=== PATIENT | female | born 1995 | race African-American/Black ===

== ENCOUNTER 2020-07-23 22:55 | Inpatient (IN) | payer OTHER ==
--- OUTSIDE RECORDS SUMMARY | 2020-07-23 23:13 | XMS ---
:1995 Author Organization [facility] Care Team Providers Name Role Phone EMERGENCY SERVICE, X Unavailable Unavailable COCUZZA, CRIS Unavailable Unavailable José Luis Carlito Unavailable Unavailable Re-disclosure Warning The records that you are about to access may contain information from federally- assisted alcohol or drug abuse programs. If such information is present, then the following federally mandated warning applies: This information has been disclosed to you from records protected by federal confidentiality rules (42 CFR part 2). The federal rules prohibit you from making any further disclosure of this information unless further disclosure is expressly permitted by the written consent of the person to whom it pertains or as otherwise permitted by 42 CFR part 2. A general authorization for the release of medical or other information is NOT sufficient for this purpose. The Federal rules restrict any use of the information to criminally investigate or prosecute any alcohol or drug abuse patient.The records that you are about to access may contain highly sensitive health information, the redisclosure of which is protected by Article 27-F of the [facility] Public Health law. If you continue you may haveaccess to information: Regarding HIV / AIDS; Provided by facilities licensed or operated by the [facility] Office of Mental Health; or Provided by the [facility] Office for People With Developmental Disabilities. If such information is present, then the following [facility] mandated warning applies: This information has been disclosed to you from confidential records which are protected by state law. State law prohibits you from making any further disclosure of this information without the specific written consent of the person to whom it pertains, or as otherwise permitted by law. Any unauthorized further disclosure in violation of state law may result in a fine or shelter sentence or both. A general authorization for the release of medical or other information is NOT sufficient authorization for further disclosure. Encounters Encounter Providers Location Date Indications Data Source(s ) Emergency Attender: ANTHONY, 05/04/2020 THUMB L[facility]ER[facility] TINAAttender: 09:07:00 PM Health Car e EMERGENCY SERVICE, EDT Corpor ation XAdmitter: Alena CRUZradhar: EMERGENCY SERVICE, X THUMB LACERATION Emergency Attender: Carlito ICU-EMERG 11/12/2018 POSS FOOD [facility] [place] 10:22:00 AM EST - POISON, REF BY Brendon abbasi 11/12/2018 DR Kulkarni 02:32:00 PM EST POSS FOOD POISON, REF BY Immunizations Vaccine Date Status Description Data Source(s) Tdap 03/08/2014 completed Tdap on: 08-Mar-2014 Site: Ent mariela left upper arm (body structure) [facility] 12:00:00 AM EDT [id number] Medications Medication Brand Start Product Dose Route [facility] Indications Reaction Description Data Name Date Form Instructions Instructions Source(s) Lidocaine Lidoca 05/04/ 0 MG UNK active Lidocain e [place] 2% w/Epi 1 ine 2% 2019 2% w/Epi r [facility] w/Epi 09:09: 1:100,000 Health 1 04 PM (Peds); Give Care EDT to provider Corporat io to admin n Medication administered onsite Docusate Colace 10/31/2016 CAPSULE 1 {cap(s)} ORAL completed [facility] Sodium 100 100 mg 12:38:51 PM Health MG Oral oral EST System Capsule capsule [Colace] Colace 100 mg oral capsule Medication should be taken with plenty o f water. ferrous ferrous 10/31/2016 TABLET 1 {tab(s)} ORAL completed [facility] sulfate 325 sulfate 325 12:38:13 PM Health MG Oral mg (65 mg EST System Tablet elemental ferrous iron) oral sulfate 325 tablet mg (65 mg elemental iron) oral tablet Check with your doctor before becoming p regnant.Do not chew, break, or crush.May discolor urine or feces. Ibuprofen IBU 600 10/31/2016 TABLET 1 {tab(s)} ORAL completed [facility] 600 MG Oral mg oral 12:37:16 PM Health Tablet tablet EST System [Ibu] IBU 600 mg oral tablet Do not take this drug if you are pregnan t.It is very important that you take or use this exactly as directed. Do not skip d oses or discontinue unless directed by your doctor.May cause drowsiness or dizziness .Obtain medical advice before taking any non-prescription drugs as some may affec t the action of this medication.Take with food or milk. Ibuprofen IBU 600 10/29/2016 TABLET 1 {tab(s)} ORAL completed [facility] 600 MG Oral mg oral 01:35:49 AM Health Tablet tablet EST System [Ibu] IBU 600 mg oral tablet Do not take this drug if you are pregnan t.It is very important that you take or use this exactly as directed. Do not skip d oses or discontinue unless directed by your doctor.May cause drowsiness or dizziness .Obtain medical advice before taking any non-prescription drugs as some may affec t the action of this medication.Take with food or milk. 999 MG oral completed [facility] Insurance Providers Payer name Policy type Policy ID Covered Covered democrat's Policy P stephan / Coverage democrat ID relationship to [place] [facility] ormation type [facility] MEDICAID [id number] SP [id number] [facility] [id number] SP [id number] CARE UNK UNK UNK Medicaid Medicaid [id number] [place] Vision [id number] S [id number] Dental [id number] S [id number] 100 Dentaquest [facility] FFS [id number] S [id number] Medicaid Vic Care [id number] S [id number] [place] Medicaid Medicaid [id number] S [id number] Regular Clinic Visit Problems, Conditions, and Diagnoses Code Display Name Description Problem Type Effective Data Sour ce(s) Dates Z3A.25 25 weeks gestation 25 WEEKS GESTATION Diagnosis 0 [place] of OF 09:07:00 PM [facility] Heart Metabolics Y99.8 Other external OTHER EXTERNAL Diagnosis 05/04/2020 [facility] cause status CAUSE STATUS 09:07:00 PM [facility] Heart Metabolics Y92.89 Other specified OTH PLACES THE Diagnosis 05/04/2020 [facility] OF OCCURRENCE 09:07:0 0 [facility] of occurrence of OF THE EXTERNAL EDT Car e the external cause CAUSE Corpor ation W26.8XXA Contact with other CONTACT WITH OTHER Diagnosis 0 [place] sharp object(s), SHARP OBJECT(S), 09:07:00 PM [facility] not elsewhere NEC, INITIAL EDT Care classified, initial ENCOUNTER Corpo ration encounter S61.012A Laceration without LACERATION W/O FB Diagnosis 05/04/2020 [place] foreign body of OF LEFT THUMB W/O 09:07:00 PM [facility] left thumb without DAMAGE TO NAIL, EDT C are damage to nail, INIT Corporati on initial encounter O9A.212 Injury, poisoning INJ/POISN/OTH Diagnosis 05/04/2020 [place] and certain other CONSEQ OF EXTRN 09:07:00 PM [facility] consequences of CAUSES COMP PREG, EDT Ca re external causes SECOND TRI Corporati on complicating , second trimester 732.3 JUVENILE Juv Osteochondrosis Diagnosis 01/08/2019 CHELSEA TREVINO ([place] OF Arm 10:03:56 AM [place] UPPER EXTREMITY EST [facility]) POSS FOOD POISON, POSS FOOD POISON, Diagnosis 11/12/2018 [facility] - New REF BY REF BY 10:22:00 AM [facility] K52.89 Other specified Other noninfectious Diagnosis 11/12/2018 [facility] - New noninfective gastroenteritis and 10:22:00 AM Ro moncho gastroenteritis and colitis EST Hospi salazar colitis Surgeries/Procedures Procedure Description Date Indications Data Source(s) Urine Test 11/12/2018 [facility] POCT 01:00:46 PM EST System - 11/12/2018 01:00:46 PM EST Aerobic Culture, Urine 11/12/2018 [facility] 12:54:48 PM EST System - 11/12/2018 12:54:48 PM EST US Obstetric limited 05/02/2016 [facility] 10:35:00 AM EDT System - 05/02/2016 10:35:00 AM EDT Urinalysis + 03/07/2014 [facility] Microscopic Examination 09:00:00 AM EDT S ystem - 03/07/2014 09:00:00 AM EDT US OB 1st Trimester 09/10/2013 [facility] (less than 14 weeks) 10:50:00 AM EST Syst em each add - 09/10/2013 10:50:00 AM EST US Obstetric limited 09/10/2013 [facility] 10:50:00 AM EST System - 09/10/2013 10:50:00 AM EST Results ID Date Data Source [id number] 07/19/2020 09:32:00 AM EDT [facility] Name Value Range Interpretation Description Data Sup porting Code Source(s) Document(s ) SARS [facility] coronavirus 2 RNA This lab was ordered by [facility] and reported by [facility]. ID Date Data Source [id number] 11/12/2018 11:09:00 AM EST [facility] Name Value Range Interpretation Description Data Sup porting Code Source(s) Document(s ) Influenza virus Negative Normal (applies Flu A Viral [facility] A RNA [Presence] to non-numeric RNA Health in Unspecified results) System specimen by Probe and target amplification method Influenza virus Negative Normal (applies Flu B Viral [facility] B RNA [Presence] to non-numeric RNA Health in Unspecified results) System specimen by Probe and target amplification method ID Date Data Source [id number] 11/12/2018 11:04:00 AM EST [facility] Name Value Range Interpretation Description Data Sup porting Code Source(s) Document(s ) Color Yellow Yellow Normal (applies Color [facility] to non-numeric Health results) System Appearance of HAZY Clear Normal (applies Urine [facility] Urine to non-numeric Appearance Health results) System Specific 1.030 1.001 - Normal (applies Urine Specific [facility] gravity of 1.035 to non-numeric [facility] Urine results) System pH.. 5.0 4.6 - 8.0 Normal (applies pH.. [facility] {pH_unit pH units to non-numeric Health s} results) System Glucose, UA NEG < 50 mg/dl Normal (applies Glucose, UA [facility] to non-numeric Health results) System Protein NEG < 30 mg/dl Normal (applies Protein [facility] [Mass/volume] to non-numeric Health in Serum or results) System Plasma Bilirubin NEG Negative Normal (applies Bilirubin [facility] Urine Sm to Lg to non-numeric Urine Health results) System Urobilinogen < 2.0 Normal (applies Urobilinogen [facility] [Mass/volume] to non-numeric UA Health in Urine results) System Reference Range: Negative or <=2.0 Ketones NEG <TR mg/dL Normal (applies Ketones UA [facility] [Mass/volume] in to non-numeric Health S ystem Urine results) Nitrate+Nitrite Negative Negative Normal (applies Nitrite [facility] [Mass/volume] in Neg/Pos to non-numeric Health S ystem Unspecified results) specimen Leukocyte NEG Negative Tr Normal (applies Leukocyte [facility] esterase to Lg to non-numeric Esterase Health System [Units/volume] in results) Concentration Urine Leukocytes 11 {/HPF} 0 - 2 /HPF Normal (applies White Blood [facility] [#/volume] in to non-numeric Cells Health Syst em Unspecified results) specimen by Automated count Red Blood Cells 1 {/HPF} 0 - 1 /HPF Normal (applies Red Blood Cells [facility] to non-numeric Health System results) Epithelial cells 11 {/HPF} 0 - 3 /HPF Normal (applies Epithelial Teresa ls [facility] [Presence] in to non-numeric Health Syst em Unspecified results) specimen by Wet preparation Mucus OCC 0 - 1 /LPF Normal (applies Mucus [facility] to non-numeric Health System results) Bacteria FEW 0 - 5 /HPF Normal (applies Bacteria [facility] [Presence] in to non-numeric Health Syst em Unspecified results) specimen Urine Blood NEG Negative Sm Normal (applies Urine Blood [facility] to Lg to non-numeric Health System results) ID Date Data Source [id number] 11/12/2018 11:04:00 AM EST [facility] System Name Value Range Interpretation Description Data Sup porting Code Source(s) Document(s ) Leukocytes 6.4 4.8 - Normal (applies WBC Count [facility] [#/volume] in {10^3_u 10.8 to non-numeric Health Unspecified L} 10^3 uL results) System specimen by Automated count Erythrocytes 4.81 4.20 - Normal (applies RBC Count [facility] [#/volume] in {10^6_u 5.40 to non-numeric Health Blood by L} 10^6 uL results) System Automated count Hemoglobin 14.3 12.0 - Normal (applies Hemoglobin [facility] [Mass/volume] in {gm/dL} 16.0 to non-numeric Health Blood gm/dL results) System Hematocrit 42.8 % 37.0 - Normal (applies Hematocrit [facility] [Volume 47.0 % to non-numeric Health Fraction] of results) System Blood Erythrocyte mean 89.0 fl 81.0 - Normal (applies MCV [facility] corpuscular 99.0 fl to non-numeric Health volume [Entitic results) System volume] by Automated count Erythrocyte mean 29.7 pg 27.0 - Normal (applies MCH [facility] corpuscular 31.0 pg to non-numeric Health hemoglobin results) System [Entitic mass] by Automated count Erythrocyte mean 33.4 30.0 - Normal (applies MCHC [facility] corpuscular {gm/dL} 35.0 to non-numeric Health hemoglobin gm/dL results) System concentration [Mass/volume] by Automated count Erythrocyte 11.9 % 11.5 - Normal (applies RDW-CV [facility] distribution 14.5 % to non-numeric Health width [Entitic results) System volume] by Automated count Platelets 303 130 - Normal (applies Platelet Count [facility] [#/volume] in {10^3_u 400 to non-numeric Health Plasma by L} 10^3 uL results) System Automated count Immature 1.50 % 0.90 - Normal (applies Immature [facility] Platelet 11.20 % to non-numeric Platelet Health Fraction results) Fraction System Platelet mean 9.1 fl 8.6 - Normal (applies MPV [facility] volume [Entitic 13.5 fl to non-numeric Health volume] in Blood results) System by Automated count Nucleated 0.0 0.0 - Normal (applies NRBC % [facility] erythrocytes {/100_W 0.2 to non-numeric Health [#/volume] in BC} /100 results) System Body fluid WBC NRBC # 0.00 0.00 - Normal (applies NRBC # [facility] {10^3_u 0.01 to non-numeric Health L} 10^3 uL results) System Neutrophils/100 79.3 % 55.0 - Above high Neutrophil % [facility] leukocytes in 75.0 % normal Health Blood by System Automated count Neutrophils 5.1 Normal (applies Neutrophil # [facility] [#/volume] in {10^3_u to non-numeric Health Body fluid L} results) System Lymphocytes 14.4 % 15.0 - Below low normal Lymphocyte % [facility] [#/volume] in 41.0 % Health Blood by System Automated count Lymphocyte # 0.9 1.0 - Below low normal Lymphocyte # [facility] {10^3_u 4.8 Health L} 10^3 uL System Monocytes/100 5.5 % 2.0 - Normal (applies Monocyte % [facility] leukocytes in 9.0 % to non-numeric Health Blood results) System Monocytes 0.4 Normal (applies Monocyte # [facility] [#/volume] in {10^3_u to non-numeric Health Blood by Manual L} results) System count Eosinophils/100 0.2 % 0.0 - Normal (applies Eosinophil % Nithin elif leukocytes in 5.0 % to non-numeric Health Unspecified results) System specimen Eosinophils 0.01 0.00 - Normal (applies Eosinophil # [facility] [#/volume] in {10^3_u 0.50 to non-numeric Health Blood L} 10^3 uL results) System Basophils/100 0.3 % 0.0 - Normal (applies Basophil % [facility] leukocytes in 1.0 % to non-numeric Health Unspecified results) System specimen by Manual count Basophils 0.02 0.00 - Normal (applies Basophil # [facility] [#/volume] in {10^3_u 0.10 to non-numeric Health Blood by L} 10^3 uL results) System Automated count Immature 0.02 0.00 - Normal (applies Immature [facility] Granulocytes # {10^3_u 0.09 to non-numeric Granulocytes # Healt h L} 10^3 uL results) System Immature 0.3 % 0.0 - Normal (applies Immature [facility] Granulocytes % 0.8 % to non-numeric Granulocytes % Healt h results) System ID Date Data Source [id number] 11/12/2018 11:04:00 AM EST [facility] Name Value Range Interpretation Description Data Sup porting Code Source(s) Document(s ) hCG 0.00 <5 Normal (applies hCG [facility] Quantitative {mIU/mL} mIU/mL to non-numeric Quantitative Health results) System Negative = <5 mIU/mLAPPROXIMATE GEST. AG E APPROXIMATE HCG mIU/ML 0.2 - 1 week 5 - 50 1 - 2 w eeks 50 - 500 2 - 3 weeks 100 - 5,000 3 - 4 weeks 500 - 10,000 4 - 5 weeks 1,000 - 50,000 5 - 6 weeks 10,000 - 100,000 6 - 8 weeks 15,000 - 200,000 8 - 12 weeks 10,000 - 1 00,000HCG levels between 5-25 mIU/mL may be indicative of early . Correlati on with other clinical findings and/or repeat of HCG quantitative testing recommened. ID Date Data Source [id number] 11/12/2018 11:04:00 AM DINO [facility] Guru villalba System Name Value Range Interpretation Description Data Sup porting Code Source(s) Document(s ) Sodium 138 135 - Normal (applies Sodium, Serum [facility] [Moles/volume] in mmol/L 145 to non-numeric Health Serum or Plasma mmol/L results) System Potassium 3.8 3.5 - Normal (applies Potassium, [facility] [Mass/volume] in mmol/L 5.0 to non-numeric Serum Health Serum or Plasma mmol/L results) System Chloride 106 101 - Normal (applies Chloride, [facility] [Moles/volume] in mmol/L 111 to non-numeric Serum Health Serum or Plasma mmol/L results) System Carbon dioxide, 27.9 21.0 - Normal (applies CO2, Serum [facility] total mmol/L 31.0 to non-numeric Health [Moles/volume] in mmol/L results) System Serum or Plasma Total Protein 7.2 6.4 - Normal (applies Total Protein [facility] mg/dl 8.1 to non-numeric Health mg/dl results) System Glucose 99 65 - Normal (applies Glucose, [facility] [Mass/volume] in mg/dL 110 to non-numeric Serum Health Serum or Plasma mg/dL results) System Urea nitrogen 14 7 - 18 Normal (applies Blood Urea [facility] [Mass/volume] in mg/dl mg/dl to non-numeric Nitrogen, Health Serum or Plasma results) Serum System Creatinine 0.72 0.50 - Normal (applies Creatinine, [facility] [Mass/volume] in mg/dl 1.20 to non-numeric Serum Health Serum or Plasma mg/dl results) System Alkaline 55 42 - Normal (applies Alkaline [facility] phosphatase {IU/L} 121 to non-numeric Phosphatase, Health isoenzymes IU/L results) Serum System [Enzymatic activity/volume] in Serum or Plasma by Heat stability Bilirubin direct 0.6 0.2 - Normal (applies Bilirubin, [facility] and total panel mg/dl 1.2 to non-numeric Serum Total Health [Mass/volume] - mg/dl results) System Serum or Plasma Direct Bilirubin 0.2 0.0 - Normal (applies Direct [facility] mg/dl 0.4 to non-numeric Bilirubin Health mg/dl results) System Aspartate 16 10 - 42 Normal (applies Aspartate [facility] aminotransferase {IU/L} IU/L to non-numeric Transaminase, Heal th [Enzymatic results) Serum System activity/volume] in Serum or Plasma by With P-5'-P Albumin 4.1 3.2 - Normal (applies Albumin, [facility] [Mass/volume] in {gm/dl} 5.5 to non-numeric Serum Health Serum or Plasma gm/dl results) System I. Phosphorus 3.1 2.6 - Normal (applies I. Phosphorus [facility] mg/dl 4.9 to non-numeric Health mg/dl results) System Alanine 9 10 - 42 Below low normal Alanine [facility] aminotransferase {IU/L} IU/L Aminotransfer Health [Enzymatic ase, Serum System activity/volume] in Serum or Plasma Calcium 9.2 8.4 - Normal (applies Calcium, [facility] [Mass/volume] in mg/dl 10.2 to non-numeric Total Serum Health Serum or Plasma mg/dl results) System A/G Ratio 1.32 Normal (applies A/G Ratio [facility] to non-numeric Health results) System Urate 4.5 2.3 - Normal (applies Uric Acid, [facility] [Mass/volume] in mg/dl 7.5 to non-numeric Serum Health Serum or Plasma mg/dl results) System Anion gap in Serum 4.10 Normal (applies Anion Gap Nithin leif or Plasma mmol/L to non-numeric Health results) System Glomerular > 90 Normal (applies GFR [facility] filtration to non-numeric Health rate/1.73 sq results) System M.predicted [Volume Rate/Area] in Serum or Plasma by Creatinine-based formula (CKD-EPI) eGFR will provide clinicians with a more accurate indicator of renal function then the serum creatinine. The eGFR is automa tically calculated from an empiric formula (endorsed by the National [employer] ion) which incorporates age, sex, and race.Clinicians may notice surprisingly low GFR's with serum creatinine valueswithin normal range- particularly in elderly wo men (with low muscle mass).In the hospital setting, the eGFR should add an element of safety in drug dosing, in assessing the risk of IV contrast administration, and in assessing vascular risk.The NKF staging system is as follows:Normal: eGFR >90 with no kidney markersStage 1: eGFR >90 with kidney markers*Stage 2: eGFR 60- 89Stage 3: eGFR 30-59Stage 4: eGFR 15-29Stage 5: eGFR <15 (usually requir ing dialysis)*Markers include: Proteinuria, Hematuria, abnormal imaging-studies, or other blood or urine test abnormalities ID Date Data Source [id number] 11/12/2018 11:04:00 AM DINO [facility] System Name Value Range Interpretation Description Data Source(s ) Supporting Code Document(s ) Lipase 5 U/L 4 - 66 Normal (applies to Lipase, Serum [facility] [Enzymatic U/L non-numeric Health System activity/v results) olume] in Serum or Plasma ID Date Data Source [id number] 11/01/2016 07:47:55 AM DINO Scotty [facility] System Name Value Range Interpretation Description Data Sup porting Code Source(s) Document(s ) Tissue Results for case # Normal (applies Tissue Exam [facility] Exam [id number] to non-numeric Health SURGICAL PATHOLOGY results) System REPORTCLINICAL INFORMATION: IUP at 38 weeks, 5 days. .PREOPERATIVE DIAGNOSIS: Same. 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 and focal increase in perivillous fibrin deposition.Stem vessels with focally thickened wall and narrowed lumen.Vascular congestion.Focal decidual atherosis.Membrano us decidua with focal acute deciduitis and fibrinoid necrosis.Degenerat ion of amnionic membrane with few scattered macrophages.Trivas cular umbilical cord with vascular and perivascular congestion.No inflammation is seen.RPS/stRERANDALLO Catarina SKY MDElectronically Signed By: GROSS DESCRIPTION: Received fresh, labeled "placenta", the specimen consists of a 440gram, 17.5 x 15 x 3cm placenta that has attached peripheral lozada translucent membranes. The site of membrane rupture is indeterminate. The 3 vessel 12 x 1.5cm umbilical cord inserts eccentrically, 6cm from the edge of the placental disc. The surface is blue kearney and the amnion has been previously stripped. There are multiple areas of subchorionic fibrin deposition measuring up to 7.5 x 5cm. The maternal surface is red brown and intact. Sectioning demonstrates multiple lozada to lozada red, rubbery, wedge shaped areas measuring up to 2cm in greatest dimension occupying 4% of the cut surfaces. A few of the rubbery areas are located adjacent to the surface. A smaller rubbery area is continuous with the maternal surface. The remaining cut surfaces are red, soft and spongy. Also received is a 16 x 1cm 2 segment of umbilical cord. An additional segment of cord is received within the container measuring 4.5 x 1cm. Full Stack Developer sections are submitted as follows: #1- membranes and umbilical cord; #2-3- one full thickness section of placenta with rubbery area, cassette #2 includes surface, #3 includes maternal surface; #4- one full thickness section of placenta including additional rubbery area; #5- one full thickness section of placenta including additional rubbery area; #6- maternal surface including additional rubbery area; #7- placenta, periphery. Additional sections of amnion in cassette #8. /stPage 2 of 2 ID Date Data Source [id number] 10/30/2016 05:57:00 AM EST [facility] System Perform at 6am Name Value Range Interpretation Description Data Sup porting Code Source(s) Document(s ) Leukocytes 12.2 4.8 - Above high WBC Count [facility] [#/volume] in {10^3_u 10.8 normal Health Unspecified L} 10^3 uL System specimen by Automated count Erythrocytes 3.16 4.20 - Below low normal RBC Count [facility] [#/volume] in {10^6_u 5.40 Health Blood by L} 10^6 uL System Automated count Hemoglobin 9.4 12.0 - Below low normal Hemoglobin [facility] [Mass/volume] in {gm/dL} 16.0 Health Blood gm/dL System Hematocrit 28.2 % 37.0 - Below low normal Hematocrit [facility] [Volume 47.0 % Health Fraction] of System Blood Erythrocyte mean 89.2 fl 81.0 - Normal (applies MCV [facility] corpuscular 99.0 fl to non-numeric Health volume [Entitic results) System volume] by Automated count Erythrocyte mean 29.7 pg 27.0 - Normal (applies MCH [facility] corpuscular 31.0 pg to non-numeric Health hemoglobin results) System [Entitic mass] by Automated count Erythrocyte mean 33.3 30.0 - Normal (applies MCHC [facility] corpuscular {gm/dL} 35.0 to non-numeric Health hemoglobin gm/dL results) System concentration [Mass/volume] by Automated count Erythrocyte 12.3 % 11.5 - Normal (applies RDW-CV [facility] distribution 14.5 % to non-numeric Health width [Entitic results) System volume] by Automated count Platelets 190 130 - Normal (applies Platelet Count [facility] [#/volume] in {10^3_u 400 to non-numeric Health Plasma by L} 10^3 uL results) System Automated count Platelet mean 10.6 fl 8.6 - Normal (applies MPV [facility] volume [Entitic 13.5 fl to non-numeric Health volume] in Blood results) System by Automated count Nucleated 0.0 0.0 - Normal (applies NRBC % [facility] erythrocytes {/100_W 0.2 to non-numeric Health [#/volume] in BC} /100 results) System Body fluid WBC NRBC # 0.00 0.00 - Normal (applies NRBC # [facility] {10^3_u 0.01 to non-numeric Health L} 10^3 uL results) System Neutrophils/100 63.6 % 55.0 - Normal (applies Neutrophil % Nithin elif leukocytes in 75.0 % to non-numeric Health Blood by results) System Automated count Neutrophils 7.8 Normal (applies Neutrophil # [facility] [#/volume] in {10^3_u to non-numeric Health Body fluid L} results) System Lymphocytes 23.8 % 15.0 - Normal (applies Lymphocyte % [facility] [#/volume] in 41.0 % to non-numeric Health Blood by results) System Automated count Lymphocyte # 2.9 1.0 - Normal (applies Lymphocyte # [facility] {10^3_u 4.8 to non-numeric Health L} 10^3 uL results) System Monocytes/100 8.7 % 2.0 - Normal (applies Monocyte % [facility] leukocytes in 9.0 % to non-numeric Health Blood results) System Monocytes 1.1 Normal (applies Monocyte # [facility] [#/volume] in {10^3_u to non-numeric Health Blood by Manual L} results) System count Eosinophils/100 2.5 % 0.0 - Normal (applies Eosinophil % Nithin elif leukocytes in 5.0 % to non-numeric Health Unspecified results) System specimen Basophils/100 0.4 % 0.0 - Normal (applies Basophil % [facility] leukocytes in 1.0 % to non-numeric Health Unspecified results) System specimen by Manual count Eosinophils 0.31 0.00 - Normal (applies Eosinophil # [facility] [#/volume] in {10^3_u 0.50 to non-numeric Health Blood L} 10^3 uL results) System Basophils 0.05 0.00 - Normal (applies Basophil # [facility] [#/volume] in {10^3_u 0.10 to non-numeric Health Blood by L} 10^3 uL results) System Automated count Immature 0.12 0.00 - Above high Immature [facility] Granulocytes # {10^3_u 0.09 normal Granulocytes # Health L} 10^3 uL System Immature 1.0 % 0.0 - Above high Immature [facility] Granulocytes % 0.8 % normal Granulocytes % Health System ID Date Data Source [id number] 10/29/2016 05:35:00 AM EST [facility] Name Value Range Interpretation Description Data Sup porting Code Source(s) Document(s ) pH 7.488 7.350 - Above high normal pH [facility] {pH_unit 7.450 pH Health s} units System Carbon dioxide 27.7 32.0 - Below low normal pCO2, [facility] [Partial {mm_Hg} 45.0 mm Arterial Health pressure] in Hg System Arterial blood Base Excess. -2.2 -3 - +3 Below low normal Base Excess. [facility] mmol/L mmol/L Health System Bicarbonate 20.8 20.0 - Normal (applies HCO3 [facility] [Moles/volume] mmol/L 26.0 to non-numeric Health in Venous mmol/L results) System blood ID Date Data Source [id number] 10/29/2016 05:35:00 AM EST [facility] System Name Value Range Interpretation Description Data Sup porting Code Source(s) Document(s ) pH 7.385 7.350 - Normal (applies pH [facility] {pH_unit 7.450 pH to non-numeric Health s} units results) System Carbon dioxide 37.9 32.0 - Normal (applies pCO2, [facility] [Partial {mm_Hg} 45.0 mm to non-numeric Arterial Health pressure] in Hg results) System Arterial blood Bicarbonate 22.2 20.0 - Normal (applies HCO3 [facility] [Moles/volume] mmol/L 26.0 to non-numeric Health in Venous mmol/L results) System blood Base Excess. -2.1 -3 - +3 Below low normal Base Excess. [facility] mmol/L mmol/L Health System ID Date Data Source [id number] 10/29/2016 02:13:00 AM [facility] System Name Value Range Interpretation Description Data Sup porting Code Source(s) Document(s ) HIV test, Negative Normal (applies to HIV test, [facility] RAPID non-numeric RAPID Health System (antibody results) (antibody testing testing only) only) PLEASE NOTE:If rapid HIV test is negativ e, this is a final report.If rapid HIV test is positive: THIS IS A PRELIMINARY REPO RT - CONFIRMATION IS PENDING.Confirmed results must be considered in making a d iagnosis related to HIV infection. ID Date Data Source [id number] 10/29/2016 01:54:00 AM EST [facility] System Name Value Range Interpretation Description Data Sup porting Code Source(s) Document(s ) D Ab [Titer] Positive Normal (applies Rh [facility] in Serum or to non-numeric Health System Plasma results) Type O Normal (applies Type [facility] to non-numeric Health System results) Antibody Negative Normal (applies Antibody [facility] Screen to non-numeric Screen Health System results) ID Date Data Source [id number] 10/29/2016 01:54:00 AM EST [facility] Name Value Range Interpretation Description Data Sup porting Code Source(s) Document(s ) aPTT in Blood 28.3 25.1 - Normal (applies Activated [facility] by {Second 36.5 to non-numeric Partial Health Coagulation s} Seconds results) Thromboplastin System assay Time ID Date Data Source [id number] 10/29/2016 01:54:00 AM [facility] System Name Value Range Interpretation Description Data Sup porting Code Source(s) Document(s ) Prothrombin 10.10 10.00 - Normal (applies Prothrombin [facility] time (PT) {seconds 13.60 to non-numeric time (PT) Health } seconds results) System INR in Blood 0.90 0.70 - Normal (applies INR Result [facility] by Coagulation {Ratio} 1.10 to non-numeric Health assay Ratio results) System Normal = 0.7-1.1Therapeutic = 2.0-3.0Mec hanical Heart = 3.0-4.5 ID Date Data Source [id number] 10/29/2016 01:54:00 AM [facility] System Name Value Range Interpretation Description Data Sup porting Code Source(s) Document(s ) Leukocytes 11.3 4.8 - Above high WBC Count [facility] [#/volume] in {10^3_uL 10.8 normal Health Unspecified } 10^3 uL System specimen by Automated count Erythrocytes 3.62 4.20 - Below low normal RBC Count [facility] [#/volume] in {10^6_uL 5.40 Health Blood by } 10^6 uL System Automated count Hemoglobin 10.7 12.0 - Below low normal Hemoglobin [facility] [Mass/volume] in {gm/dL} 16.0 Health Blood gm/dL System Erythrocyte mean 89.8 fl 81.0 - Normal (applies MCV [facility] corpuscular 99.0 fl to non-numeric Health volume [Entitic results) System volume] by Automated count Hematocrit 32.5 % 37.0 - Below low normal Hematocrit [facility] [Volume 47.0 % Health Fraction] of System Blood Erythrocyte mean 29.6 pg 27.0 - Normal (applies MCH [facility] corpuscular 31.0 pg to non-numeric Health hemoglobin results) System [Entitic mass] by Automated count Erythrocyte 12.2 % 11.5 - Normal (applies RDW-CV [facility] distribution 14.5 % to non-numeric Health width [Entitic results) System volume] by Automated count Erythrocyte mean 32.9 30.0 - Normal (applies MCHC [facility] corpuscular {gm/dL} 35.0 to non-numeric Health hemoglobin gm/dL results) System concentration [Mass/volume] by Automated count Platelets 199 130 - Normal (applies Platelet [facility] [#/volume] in {10^3_uL 400 to non-numeric Count Health Plasma by } 10^3 uL results) System Automated count Platelet mean 10.5 fl 8.6 - Normal (applies MPV [facility] volume [Entitic 13.5 fl to non-numeric Health volume] in Blood results) System by Automated count NRBC # 0.00 0.00 - Normal (applies NRBC # [facility] {10^3_uL 0.01 to non-numeric Health } 10^3 uL results) System Nucleated 0.0 0.0 - Normal (applies NRBC % [facility] erythrocytes {/100_WB 0.2 to non-numeric Health [#/volume] in C} /100 results) System Body fluid WBC ID Date Data Source [id number] 10/29/2016 01:54:00 AM DINO [facility] Guru villalba System Name Value Range Interpretation Description Data Sup porting Code Source(s) Document(s ) Sodium 134 135 - Below low normal Sodium, Serum [facility] [Moles/volume] in mmol/L 145 Health Serum or Plasma mmol/L System Potassium 4.2 3.5 - Normal (applies Potassium, [facility] [Mass/volume] in mmol/L 5.0 to non-numeric Serum Health Serum or Plasma mmol/L results) System Chloride 102 101 - Normal (applies Chloride, [facility] [Moles/volume] in mmol/L 111 to non-numeric Serum Health Serum or Plasma mmol/L results) System Carbon dioxide, 22.4 21.0 - Normal (applies CO2, Serum [facility] total mmol/L 31.0 to non-numeric Health [Moles/volume] in mmol/L results) System Serum or Plasma Total Protein 6.4 6.4 - Normal (applies Total Protein [facility] mg/dl 8.1 to non-numeric Health mg/dl results) System Urea nitrogen 9 mg/dl 7 - 18 Normal (applies Blood Urea [facility] [Mass/volume] in mg/dl to non-numeric Nitrogen, Health Serum or Plasma results) Serum System Glucose 68 65 - Normal (applies Glucose, [facility] [Mass/volume] in mg/dL 110 to non-numeric Serum Health Serum or Plasma mg/dL results) System Creatinine 0.59 0.50 - Normal (applies Creatinine, [facility] [Mass/volume] in mg/dl 1.20 to non-numeric Serum Health Serum or Plasma mg/dl results) System Alkaline 150 42 - Above high Alkaline [facility] phosphatase {IU/L} 121 normal Phosphatase, Health isoenzymes IU/L Serum System [Enzymatic activity/volume] in Serum or Plasma by Heat stability Bilirubin.total 0.4 0.2 - Normal (applies Bilirubin, [facility] [Mass/volume] in mg/dl 1.2 to non-numeric Serum Total Health Serum or Plasma mg/dl results) System Direct Bilirubin 0.1 0.0 - Normal (applies Direct [facility] mg/dl 0.4 to non-numeric Bilirubin Health mg/dl results) System Aspartate 18 10 - 42 Normal (applies Aspartate [facility] aminotransferase {IU/L} IU/L to non-numeric Transaminase, Heal th [Enzymatic results) Serum System activity/volume] in Serum or Plasma by With P-5'-P Albumin 3.4 3.2 - Normal (applies Albumin, [facility] [Mass/volume] in {gm/dl} 5.5 to non-numeric Serum Health Serum or Plasma gm/dl results) System I. Phosphorus 3.6 2.6 - Normal (applies I. Phosphorus [facility] mg/dl 4.9 to non-numeric Health mg/dl results) System Calcium 8.6 8.4 - Normal (applies Calcium, [facility] [Mass/volume] in mg/dl 10.2 to non-numeric Total Serum Health Serum or Plasma mg/dl results) System Alanine 6 10 - 42 Below low normal Alanine [facility] aminotransferase {IU/L} IU/L Aminotransfer Health [Enzymatic ase, Serum System activity/volume] in Serum or Plasma A/G Ratio 1.13 Normal (applies A/G Ratio [facility] to non-numeric Health results) System Anion gap in Serum 9.60 Normal (applies Anion Gap Nithin elif or Plasma mmol/L to non-numeric Health results) System Urate 4.6 2.3 - Normal (applies Uric Acid, [facility] [Mass/volume] in mg/dl 7.5 to non-numeric Serum Health Serum or Plasma mg/dl results) System Glomerular > 90 Normal (applies GFR [facility] filtration to non-numeric Health rate/1.73 sq results) System M.predicted [Volume Rate/Area] in Serum or Plasma by Creatinine-based formula (CKD-EPI) eGFR will provide clinicians with a more accurate indicator of renal function then the serum creatinine. The eGFR is automa tically calculated from an empiric formula (endorsed by the [employer] ion) which incorporates age, sex, and race.Clinicians may notice surprisingly low GFR's with serum creatinine valueswithin normal range- particularly in elderly wo men (with low muscle mass).In the hospital setting, the eGFR should add an element of safety in drug dosing, in assessing the risk of IV contrast administration, and in assessing vascular risk.The NKF staging system is as follows:Normal: eGFR >90 with no kidney markersStage 1: eGFR >90 with kidney markers*Stage 2: eGFR 60- 89Stage 3: eGFR 30-59Stage 4: eGFR 15-29Stage 5: eGFR <15 (usually requir ing dialysis)*Markers include: Proteinuria, Hematuria, abnormal imaging-studies, or other blood or urine test abnormalities ID Date Data Source [id number] 10/29/2016 01:54:00 AM EST [facility] Name Value Range Interpretation Description Data Source(s ) Supporting Code Document(s ) Reagin Ab Non-react Normal (applies to RPR. [facility] [Presence] aravind non-numeric Health System in Serum by results) RPR ID Date Data Source [id number] 03/08/2014 06:00:00 AM EDT [facility] Name Value Range Interpretation Description Data Sup porting Code Source(s) Document(s ) Leukocytes 13.2 4.8 - Above high normal WBC Count [facility] [#/volume] in {10^3_uL 10.8 Health System Unspecified } 10^3 uL specimen by Automated count [place] Erythrocytes 3.83 {10^6_uL} 4.20 - Below low RBC Count [facility] [#/volume] in Blood 5.40 10^6 normal Health Sys tem by Automated count uL Hemoglobin 11.9 {gm/dL} 12.0 - Below low Hemoglobin, [facility] [Mass/volume] in 16.0 normal Whole Blood Health Syst em Blood gm/dL Erythrocyte mean 93.0 fl 81.0 - Normal MCV [facility] corpuscular volume 99.0 fl (applies to Health Sy stem [Entitic volume] by non-numeric Automated count results) Hematocrit [Volume 35.6 % 37.0 - Below low Hematocrit, [facility] Fraction] of Blood 47.0 % normal Whole Blood Health Sy stem Erythrocyte mean 31.0 pg 27.0 - Normal MCH [facility] corpuscular 31.0 pg (applies to Health System hemoglobin [Entitic non-numeric mass] by Automated results) count Erythrocyte mean 33.4 {gm/dL} 33.0 - Normal MCHC [facility] corpuscular 37.0 (applies to Health System hemoglobin gm/dL non-numeric concentration results) [Mass/volume] by Automated count Platelets 207 {10^3_uL} 130 - 400 Normal Platelet Count [facility] [#/volume] in 10^3 uL (applies to Health System Plasma by Automated non-numeric count results) Erythrocyte 13.3 % 11.5 - Normal RDW [facility] distribution width 14.5 % (applies to Health Sy stem [Entitic volume] by non-numeric Automated count results) Monocytes 0.6 {10^3_uL} 0.1 - 1.0 Normal Monocyte Count [facility] [#/volume] in Blood 10^3 uL (applies to [facility] by Manual count non-numeric results) Eosinophils 0.3 {10^3_uL} 0.0 - 0.5 Normal Eosinophil [facility] [#/volume] in Blood 10^3 uL (applies to Count Blood Health System non-numeric results) Platelet mean 8.0 fl 7.4 - Normal MPV [facility] volume [Entitic 10.4 fl (applies to Health Syste m volume] in Blood by non-numeric Automated count results) Basophils 0.0 {10^3_uL} 0.0 - 0.1 Normal Basophil Count [facility] [#/volume] in Blood 10^3 uL (applies to [facility] S te by Automated count non-numeric results) Neutrophils 10.4 {10^3_uL} 2.6 - 8.1 Above high Absolute [facility] [#/volume] in Body 10^3 uL normal Neutrophil Health Sys tem fluid Count Monocytes/100 4.8 % 2.0 - 9.0 Normal Monocyte % [facility] leukocytes in Blood % (applies to Health S ystem non-numeric results) Neutrophils/100 78.4 % 55.0 - Above high Neutrophil % [facility] leukocytes in Blood 75.0 % normal Health Sys tem by Automated count Lymphocyte Absolute 1.9 {10^3_uL} 0.7 - 4.4 Normal Lymphocyte iNthin elif 10^3 uL (applies to Absolute Health System non-numeric results) Eosinophils/100 2.4 % 0.0 - 5.0 Normal Eosinophil % [facility] leukocytes in % (applies to Health System Unspecified non-numeric specimen results) Basophils/100 0.1 % 0.0 - 1.0 Normal Basophil % [facility] leukocytes in % (applies to Health System Unspecified non-numeric specimen by Manual results) count Lymphocytes 14.3 % 15.0 - Below low Lymphocyte % [facility] [#/volume] in Blood 41.0 % normal Health Sys tem by Automated count ID Date Data Source [id number] 03/08/2014 06:00:00 AM EDT [facility] Name Value Range Interpretation Description Data Sup porting Code Source(s) Document(s ) Sodium 136 135 - Normal (applies Sodium, Serum [facility] [Moles/volume mmol/L 145 to non-numeric Health ] in Serum or mmol/L results) System Plasma Potassium 4.1 3.5 - Normal (applies Potassium, [facility] [Mass/volume] mmol/L 5.0 to non-numeric Serum Health in Serum or mmol/L results) System Plasma Chloride 103 101 - Normal (applies Chloride, [facility] [Moles/volume mmol/L 111 to non-numeric Serum Health ] in Serum or mmol/L results) System Plasma Glucose 97 mg/dL 65 - 110 Normal (applies Glucose, Serum [facility] [Mass/volume] mg/dL to non-numeric Health in Serum or results) System Plasma Carbon 24.4 21.0 - Normal (applies CO2, Serum [facility] dioxide, mmol/L 31.0 to non-numeric Health total mmol/L results) System [Moles/volume ] in Serum or Plasma Urea nitrogen 5 mg/dl 7 - 18 Below low normal Blood Urea [facility] [Mass/volume] mg/dl Nitrogen, Health in Serum or Serum System Plasma Creatinine 0.62 0.50 - Normal (applies Creatinine, [facility] [Mass/volume] mg/dl 1.20 to non-numeric Serum Health in Serum or mg/dl results) System Plasma Calcium 8.6 8.4 - Normal (applies Calcium, Total [facility] [Mass/volume] mg/dl 10.2 to non-numeric Serum Health in Serum or mg/dl results) System Plasma Anion gap in 8.60 Normal (applies Anion Gap [facility] Serum or mmol/L to non-numeric Health Plasma results) System ID Date Data Source [id number] 03/07/2014 09:00:00 AM EDT [facility] System Name Value Range Interpretation Description Data Sup porting Code Source(s) Document(s ) Type O Normal (applies Type [facility] to non-numeric Health System results) Antibody Negative Normal (applies Antibody [facility] Screen to non-numeric Screen Health System results) D Ab [Titer] Positive Normal (applies Rh [facility] in Serum or to non-numeric Health System Plasma results) ID Date Data Source [id number] 03/07/2014 09:00:00 AM EDT [facility] System Name Value Range Interpretation Description Data Source(s ) Supporting Code Document(s ) Reagin Ab Non-react Normal (applies to RPR/VDRL. [facility] [Presence] aravind non-numeric Health System in Serum by results) RPR ID Date Data Source [id number] 03/07/2014 09:00:00 AM EDT [facility] Name Value Range Interpretation Description Data Sup porting Code Source(s) Document(s ) aPTT in Blood 26.2 25.1 - Normal (applies Activated [facility] by {Second 36.5 to non-numeric Partial Health Coagulation s} Seconds results) Thromboplastin System assay Time ID Date Data Source [id number] 03/07/2014 09:00:00 AM EDT [facility] Name Value Range Interpretation Description Data Sup porting Code Source(s) Document(s ) INR in Blood 0.90 0.70 - Normal (applies INR Result [facility] by Coagulation {Ratio} 1.10 to non-numeric Health Sys tem assay Ratio results) Normal = 0.7-1.1Therapeutic = 2.0-3.0Mec hanical Heart = 3.0-4.5 Prothrombin time 9.60 {seconds} Normal (applies Prothrombin time [facility] (PT) to non-numeric (PT) Health System results) ID Date Data Source [id number] 03/07/2014 09:00:00 AM EDT [facility] Name Value Range Interpretation Description Data Sup porting Code Source(s) Document(s ) Erythrocytes 4.08 4.20 - Below low normal RBC Count [facility] [#/volume] in {10^6_uL 5.40 Health Blood by } 10^6 uL System Automated count Leukocytes 8.5 4.8 - Normal (applies WBC Count [facility] [#/volume] in {10^3_uL 10.8 to non-numeric Health Unspecified } 10^3 uL results) System specimen by Automated count Hematocrit 37.5 % 37.0 - Normal (applies Hematocrit, [facility] [Volume 47.0 % to non-numeric Whole Blood Health Fraction] of results) System Blood Hemoglobin 12.8 12.0 - Normal (applies Hemoglobin, [facility] [Mass/volume] in {gm/dL} 16.0 to non-numeric Whole Blood Health Blood gm/dL results) System Erythrocyte mean 92.0 fl 81.0 - Normal (applies MCV [facility] corpuscular 99.0 fl to non-numeric Health volume [Entitic results) System volume] by Automated count Erythrocyte mean 31.4 pg 27.0 - Above high MCH [facility] corpuscular 31.0 pg normal Health hemoglobin System [Entitic mass] by Automated count Erythrocyte mean 34.1 33.0 - Normal (applies MCHC [facility] corpuscular {gm/dL} 37.0 to non-numeric Health hemoglobin gm/dL results) System concentration [Mass/volume] by Automated count Erythrocyte 12.7 % 11.5 - Normal (applies RDW [facility] distribution 14.5 % to non-numeric Health width [Entitic results) System volume] by Automated count Monocytes 0.6 0.1 - Normal (applies Monocyte [facility] [#/volume] in {10^3_uL 1.0 to non-numeric Count Health Blood by Manual } 10^3 uL results) System count Platelet mean 7.5 fl 7.4 - Normal (applies MPV [facility] volume [Entitic 10.4 fl to non-numeric Health volume] in Blood results) System by Automated count Platelets 219 130 - Normal (applies Platelet [facility] [#/volume] in {10^3_uL 400 to non-numeric Count Health Plasma by } 10^3 uL results) System Automated count Eosinophils 0.3 0.0 - Normal (applies Eosinophil [facility] [#/volume] in {10^3_uL 0.5 to non-numeric Count Blood Health Blood } 10^3 uL results) System Basophils 0.0 0.0 - Normal (applies Basophil [facility] [#/volume] in {10^3_uL 0.1 to non-numeric Count Health Blood by } 10^3 uL results) System Automated count Neutrophils/100 72.9 % 55.0 - Normal (applies Neutrophil % Nithin elif leukocytes in 75.0 % to non-numeric Health Blood by results) System Automated count Lymphocyte 1.3 0.7 - Normal (applies Lymphocyte [facility] Absolute {10^3_uL 4.4 to non-numeric Absolute Health } 10^3 uL results) System Neutrophils 6.2 2.6 - Normal (applies Absolute [facility] [#/volume] in {10^3_uL 8.1 to non-numeric Neutrophil Health Body fluid } 10^3 uL results) Count System Monocytes/100 7.6 % 2.0 - Normal (applies Monocyte % [facility] leukocytes in 9.0 % to non-numeric Health Blood results) System Basophils/100 0.4 % 0.0 - Normal (applies Basophil % [facility] leukocytes in 1.0 % to non-numeric Health Unspecified results) System specimen by Manual count Lymphocytes 15.9 % 15.0 - Normal (applies Lymphocyte % [facility] [#/volume] in 41.0 % to non-numeric Health Blood by results) System Automated count Eosinophils/100 3.2 % 0.0 - Normal (applies Eosinophil % Nithin elif leukocytes in 5.0 % to non-numeric Health Unspecified results) System specimen ID Date Data Source [id number] 03/07/2014 09:00:00 AM EDT [facility] Name Value Range Interpretation Description Data Sup porting Code Source(s) Document(s ) Sodium 135 135 - Normal (applies Sodium, Serum [facility] [Moles/volume mmol/L 145 to non-numeric Health ] in Serum or mmol/L results) System Plasma Potassium 3.9 3.5 - Normal (applies Potassium, [facility] [Mass/volume] mmol/L 5.0 to non-numeric Serum Health in Serum or mmol/L results) System Plasma Chloride 105 101 - Normal (applies Chloride, [facility] [Moles/volume mmol/L 111 to non-numeric Serum Health ] in Serum or mmol/L results) System Plasma Carbon 22.8 21.0 - Normal (applies CO2, Serum [facility] dioxide, mmol/L 31.0 to non-numeric Health total mmol/L results) System [Moles/volume ] in Serum or Plasma Urea nitrogen 7 mg/dl 7 - 18 Normal (applies Blood Urea [facility] [Mass/volume] mg/dl to non-numeric Nitrogen, Health in Serum or results) Serum System Plasma Glucose 92 mg/dL 65 - 110 Normal (applies Glucose, Serum [facility] [Mass/volume] mg/dL to non-numeric Health in Serum or results) System Plasma Creatinine 0.53 0.50 - Normal (applies Creatinine, [facility] [Mass/volume] mg/dl 1.20 to non-numeric Serum Health in Serum or mg/dl results) System Plasma Anion gap in 7.20 Normal (applies Anion Gap [facility] Serum or mmol/L to non-numeric Health Plasma results) System Calcium 8.7 8.4 - Normal (applies Calcium, Total [facility] [Mass/volume] mg/dl 10.2 to non-numeric Serum Health in Serum or mg/dl results) System Plasma Procedure Vital Signs ID Date Data Source UNK Name Value Range Interpretation Code Description Data Source(s) Last menstrual [facility] period start date Health System Body surface area 1.7 m2 1.7 m2 [facility] Derived from Health Syste m formula Body mass index 25.7 kg/m2 25.7 kg/m2 [facility] (BMI) [Ratio] Health Syst em Body weight 70.3 kg 70.3 kg [facility] Body height 165.1 cm 165.1 cm [facility] Body temperature 99.3 [degF] 0 - 200 Normal (applies to 99.3 [degF ] [facility] non-numeric results) [facility] Body temperature 37.3 Teresa 0 - 99.9 Normal (applies to 37.3 Teresa [facility] non-numeric results) [facility] Diastolic blood 72 mm[Hg] 0 - 999 Normal (applies to 72 mm[Hg] [facility] pressure non-numeric results) [facility] Systolic blood 125 mm[Hg] 0 - 999 Normal (applies to 125 mm[Hg] [facility] pressure non-numeric results) [facility] Deprecated Oxygen 98 % 0 - 999 Normal (applies to 98 % [facility] saturation in non-numeric results) H ealth System Capillary blood by Oximetry Respiratory rate 15 0 - 999 Normal (applies to 15 [facility] non-numeric results) [facility] Heart rate 92 0 - 999 Normal (applies to 92 [facility] non-numeric results) [facility] Patient Treatment Plan of Care Planned Activity Planned Date Details Description Data Source (s) Lidocaine 2% w/Epi 1 05/04/2020 09:09:04 [facility] Cor poration Docusate Sodium 100 MG 10/31/2016 12:38:51 [email or web address] Oral Capsule [Colace] PM EST System ferrous sulfate 325 MG 10/31/2016 12:38:13 [email or web address] Oral Tablet PM EST System Ibuprofen 600 MG Oral 10/31/2016 12:37:16 [email or web address] Tablet [Ibu] PM EST System Ibuprofen 600 MG Oral 10/29/2016 01:35:49 [email or web address] Tablet [Ibu] AM EST System
--- OUTSIDE RECORDS SUMMARY | 2020-07-23 23:48 | XMS ---
[...] is protected by Article 27-F of the [facility] Public Health law. If you continue you may haveaccess to information: Regarding HIV / AIDS; Provided by facilities licensed or operated by the [facility] Office of Mental Health; or Provided by the [facility] Office for People With Developmental Disabilities. If such information is present, then the following [facility] mandated warning applies: This information has been [...] law may result in a fine or [place] health care facility sentence or both. A general authorization for the release of medical or other information is NOT sufficient authorization for further disclosure. Encounters Encounter Providers Location Date Indications Data Source(s ) Emergency Attender: ANTHONY, 05/04/2020 THUMB LACERATION [facility] TINAAttender: 09:07:00 PM Health Car e EMERGENCY [...] 12:00:00 AM EDT Lot #: [id number] [facility] Medications Medication Brand Start Product Dose Route Administrative Pharmacy [facility] Indications Reaction Description Data Name Date Form [...] milk. 999 MG oral completed [facility] Cor poration Insurance Providers Payer name Policy type Policy ID Covered Covered democrat's Policy P stephan / Coverage democrat ID relationship to [facility] Inf ormation type ballesteros [facility] MEDICAID [id number] SP [id number] [facility] [id number] SP [id number] CARE UNK UNK UNK Medicaid Medicaid [id number] 1 [id number] Lalito Vision [id number] S [id number] Dental [id number] S [id number] 100 [employer]entaquest [facility] [place] FFS [id number] S [id number] Medicaid Vic Care [id number] S [id number] [place] Medicaid Medicaid [id number] S [id number] Regular Clinic Visit Problems, Conditions, and Diagnoses Code Display Name Description Problem Type Effective Data Sour ce(s) Dates Z3A.25 25 weeks gestation 25 WEEKS GESTATION Diagnosis 0 [facility] of OF 09:07:00 PM [facility] Y99.8 Other external OTHER EXTERNAL Diagnosis 05/04/2020 [facility] cause status CAUSE STATUS 09:07:00 PM [facility] Y92.89 Other specified OTH PLACES THE Diagnosis 05/04/2020 [facility] PLACE OF OCCURRENCE 09:07:0 0 [facility] of occurrence of OF THE EXTERNAL EDT Car e the external cause CAUSE Corpor ation W26.8XXA Contact with other CONTACT WITH OTHER Diagnosis 0 [facility] sharp object(s), SHARP OBJECT(S), 09:07:00 PM [facility] NEC, INITIAL EDT Care classified, initial ENCOUNTER Corpo ration encounter S61.012A Laceration without LACERATION W/O FB Diagnosis 05/04/2020 [facility] foreign body of OF LEFT THUMB W/O [...] 10:03:56 AM Vern[place] n UPPER EXTREMITY EST [facility]) POSS FOOD POISON, POSS FOOD POISON, Diagnosis 11/12/2018 [facility] - New REF BY REF BY 10:22:00 AM [facility] K52.89 Other specified Other noninfectious Diagnosis 11/12/2018 [facility] - New noninfective gastroenteritis and 10:22:00 AM Ro moncho gastroenteritis and colitis EST [facility] salazar colitis Surgeries/Procedures Procedure Description Date Indications Data Source(s) Urine Test 11/12/2018 [facility] POCT 01:00:46 PM EST System - 11/12/2018 01:00:46 PM EST Aerobic Culture, Urine 11/12/2018 [facility] 12:54:48 PM EST System - 11/12/2018 12:54:48 PM EST US Obstetric limited 05/02/2016 [facility] 10:35:00 AM EDT System - 05/02/2016 10:35:00 [...] AM EST Results ID Date Data Source [id number] 07/19/2020 09:32:00 AM EDT [facility] Name Value Range Interpretation Description Data Sup porting Code Source(s) Document(s ) SARS [facility] coronavirus 2 RNA This lab was ordered by [facility] and reported by [facility]. ID Date Data Source [id number] 11/12/2018 11:09:00 AM EST [facility] [...] target amplification method ID Date Data Source [id number] 11/12/2018 11:04:00 AM EST [facility] Name Value Range Interpretation Description Data Sup porting Code Source(s) Document(s ) Color Yellow Yellow Normal (applies Color [facility] to non-numeric Health results) System Appearance of HAZY Clear Normal (applies Urine [facility] Urine to non-numeric Appearance Health results) System Specific 1.030 1.001 - Normal (applies Urine Specific [facility] gravity of 1.035 to non-numeric [facility] Urine results) System pH.. 5.0 4.6 [...] Health System results) ID Date Data Source [id number] 11/12/2018 11:04:00 AM EST [facility] [...] h results) System ID Date Data Source [id number] 11/12/2018 11:04:00 AM EST [facility] [...] quantitative testing recommened. ID Date Data Source [id number] 11/12/2018 11:04:00 AM DINO [facility] Guru villalba [...] Serum 4.10 Normal (applies Anion Gap Nithin elif or [...] urine test abnormalities ID Date Data Source [id number] 11/12/2018 11:04:00 AM DINO [facility] System Name Value Range Interpretation Description Data Source(s ) Supporting Code Document(s ) Lipase 5 U/L 4 - 66 Normal (applies to Lipase, Serum [facility] [Enzymatic U/L non-numeric Health System activity/v results) olume] in Serum or Plasma ID Date Data Source [id number] 11/01/2016 07:47:55 AM DINO Scotty [facility] Name Value Range Interpretation Description Data Sup porting Code Source(s) Document(s ) Tissue Results for case # Normal (applies Tissue Exam [facility] Exam [id number] to non-numeric Health SURGICAL PATHOLOGY results) System [...] within the container measuring 4.5 x 1cm. Services Manager sections are submitted as follows: #1- membranes [...] 2 of 2 ID Date Data Source [id number] 10/30/2016 05:57:00 AM EST [facility] [...] % Health System ID Date Data Source [id number] 10/29/2016 05:35:00 AM EST [facility] [...] results) System blood ID Date Data Source [id number] 10/29/2016 05:35:00 AM EST Scotty [facility] alth [...] mmol/L Health System ID Date Data Source [id number] 10/29/2016 02:13:00 AM DINO [facility] [...] to HIV infection. ID Date Data Source [id number] 10/29/2016 01:54:00 AM EST Scotty [facility] al[facility] [...] Health System results) ID Date Data Source [id number] 10/29/2016 01:54:00 AM EST [facility] Name Value Range Interpretation Description Data Sup porting Code Source(s) Document(s ) aPTT in Blood 28.3 25.1 - Normal (applies Activated [facility] by {Second 36.5 to non-numeric [facility] Coagulation s} Seconds results) Thromboplastin System assay Time ID Date Data Source [id number] 10/29/2016 01:54:00 AM DINO [facility] [...] Heart = 3.0-4.5 ID Date Data Source [id number] 10/29/2016 01:54:00 AM DINO [facility] [...] Body fluid WBC ID Date Data Source [id number] 10/29/2016 01:54:00 AM DINO [facility] Guru villalba [...] urine test abnormalities ID Date Data Source [id number] 10/29/2016 01:54:00 AM EST [facility] Name Value Range Interpretation Description Data Source(s ) Supporting Code Document(s ) Reagin Ab Non-react Normal (applies to RPR. [facility] [Presence] aravind non-numeric Health System in Serum by results) RPR ID Date Data Source [id number] 03/08/2014 06:00:00 AM EDT [facility] [...] [#/volume] in Blood 10^3 uL (applies to [facility] by Manual count non-numeric results) Eosinophils 0.3 [...] [#/volume] in Blood 10^3 uL (applies to [facility] S te by Automated count non-numeric [...] 1.9 {10^3_uL} 0.7 - 4.4 Normal Lymphocyte Nithin elif 10^3 uL (applies to [facility] [...] by Automated count ID Date Data Source [id number] 03/08/2014 06:00:00 AM EDT [facility] [...] Plasma results) System ID Date Data Source [id number] 03/07/2014 09:00:00 AM EDT [facility] [...] System Plasma results) ID Date Data Source [id number] 03/07/2014 09:00:00 AM EDT [facility] Name Value Range Interpretation Description Data Source(s ) Supporting Code Document(s ) Reagin Ab Non-react Normal (applies to RPR/VDRL. [facility] [Presence] aravind non-numeric Health System in Serum by results) RPR ID Date Data Source [id number] 03/07/2014 09:00:00 AM EDT [facility] Name Value Range Interpretation Description Data Sup porting Code Source(s) Document(s ) aPTT in Blood 26.2 25.1 - Normal (applies Activated [facility] by {Second 36.5 to non-numeric [facility] Coagulation s} Seconds results) Thromboplastin System assay Time ID Date Data Source [id number] 03/07/2014 09:00:00 AM EDT [facility] [...] Health System results) ID Date Data Source [id number] 03/07/2014 09:00:00 AM EDT [facility] [...] results) System specimen ID Date Data Source [id number] 03/07/2014 09:00:00 AM EDT [facility] [...] System Body height 165.1 cm 165.1 cm [facility] Body temperature 99.3 [degF] 0 - 200 Normal (applies to 99.3 [degF ] [facility] non-numeric results) Heal th System Body temperature 37.3 Teresa 0 - 99.9 Normal (applies to 37.3 Teresa [facility] non-numeric results) Heal System Diastolic blood 72 mm[Hg] 0 - 999 Normal (applies to 72 mm[Hg] [facility] pressure non-numeric results) [facility] Systolic blood 125 mm[Hg] 0 - 999 Normal (applies to 125 mm[Hg] [facility] pressure non-numeric results) [facility] Deprecated Oxygen 98 % 0 - 999 Normal (applies to 98 % [facility] saturation in non-numeric results) H ealth System Capillary blood by Oximetry Respiratory rate 15 0 - 999 Normal (applies to 15 [facility] non-numeric results) [facility] Heart rate 92 0 - 999 Normal (applies to 92 [facility] non-numeric results) [facility] Patient Treatment Plan of Care Planned Activity Planned Date Details Description Data Source (s) Lidocaine 2% w/Epi 1 05/04/2020 09:09:04 [facility] Cor poration Docusate Sodium 100 MG 10/31/2016 12:38:51 [facility] Oral Capsule [Colace] PM EST System ferrous sulfate 325 MG 10/31/2016 12:38:13 [facility] Oral Tablet PM EST System Ibuprofen 600 MG Oral 10/31/2016 12:37:16 [facility] Tablet [Ibu] PM EST System Ibuprofen 600 MG Oral 10/29/2016 01:35:49 [facility] Tablet [Ibu] AM EST System
[2020-07-23] MEDS: ELECTROLYTE-148 SOLN 1,000 ML IV SCH (23:50)
[2020-07-24 00:13] VITALS: BMI 32.0
[2020-07-24] MEDS ORDERED: ONDANSETRON 4 MG/2 ML VIAL IVPUSH PRN (00:16)
[2020-07-24] MEDS ORDERED: morphine SULFATE/PF 0.5 MG/ML (2cc Syringe - QUVA) ONE (00:24)
[2020-07-24] MEDS ORDERED: CITRIC ACID/SODIUM CITRATE 30 ML UNIT-DOSE CUP PO ONE (00:45)
--- NOTE | 2020-07-24 00:51 | HP ---
Past Medical History - Primary Care Physician PCP:: Sebas Carias E - Admission Chief Complaint: twins in labor History of Present Illness: 37 wks, twins di/di, synchronous growth. 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 No: Alzheimer's, CVA, Dementia, Migraine, Multiple Sclerosis, Parkinson's, Seizure, Syncope, TIA, Vertigo, Other Cardiovascular: No: AFIB, Aneurysm, Aortic Insufficiency, Aortic Stenosis, CAD, CHF, Deep Vein Thrombosis, HTN, Hyperlipdemia, ID, Mitral Insufficiency, Mitral Stenosis, Murmur, Pulmonary Hypertension, Other Pulmonary: No: Asthma, Bronchitis, Cancer, COPD, O2 Dependent, Pneumonia, Previously Intubated, Pulmonary Embolus, Pulmonary Fibrosis, Sleep Apnea, Other Gastrointestinal: No: Ascites, Cancer, Constipation, Crohn's Disease, Diverticulitis, Diverticulosis, Esophageal Varices, Gastritis, GERD, GI Bleed, Hemorrhoids, Hiatal Hernia, Inflamatory Bowel Disease, Irritable Bowel Disease, Pancreatitis, Peptic Ulcer Disease, Ulcerative Colitis, Other Hepatobiliary: No: Cirrhosis, Cholelithiasis, Cholecystitis, Choledocholithiasis, Hepatitis A, Hepatitis B, Hepatitis C, Other Renal/: No: Renal Failure, Renal Inusuff, BPH, Cancer, Hematuria, Hemodialysis, Neurogenic Bladder, Renal Calculi, UTI, Other Reproductive: No: Ectopic , Endometriosis, Fibroids, PID, Polycystic Ovary Syndrome, Postmenopausal, Other ...: 3 ...Para: 2 ...Term: 2 ...: 0 ...Spon : 0 ...Induced : 0 ...Living Children: 2 ...Multiple Gestation: 1 ...EDC by [place]: 08/08/20 Heme/Onc: No: Anemia, B12 Deficiency, Bleeding Disorder, Cancer, Current Chemotherapy, Current Radiation Therapy, Hemochromatosis, Hypercoaguable State, Myeloproliferative Synd, Sickle Cell Disease, Sickle Cell Trait, Thrombocytopenia, Other Infectious Disease: No: AIDS, C-Diff, Herpes Zoster, HIV, MRSA, STD's, Tuberculosis, VREF, Other Psych: No: Addictions, Anxiety, Bipolar, Depression, Panic, Psychosis, Schizophrenia, Other Musculoskeletal: No: Bursitis, Chronic low back pain, Hemiparesis, Hemiplegia, Osteoarthritis, Paraplegia, Other Rheumatology: No: Fibromyalgia, Gout, Lupus, Rheumatoid Arthritis, Sarcoidosis, Vasculitis, Other ENT: No: Allergic Rhinitis, Sinusitis, Other Endocrine: No: Riccardo's Disease, Marietta's Disease, Diabetes Insipidus, Diabetes Mellitus, Hyperparathyroidism, Hyperthyroidism, Hypothyroidism, Osteopenia, SIADH, Other Dermatology: No: Basal Cell, Cellulitis, Eczema, Melanoma, Psoriasis, Squamous Cell, Other - Past Surgical History Past Surgical History: Yes: None. No: AAA Repair, AICD, Amputation, Appendectomy, Arthrosocopy, AV Fistula/Graft, Bariatric Surgery, Breast Biopsy, Bypass, CABG, Carotid Endarterectomy, Cataract Removal, Cholecystectomy, Colectomy, Colonoscopy, Colostomy, Craniotomy, , Cystectomy, Hernia Repair, Hysterectomy, Ileal Conduit, Ileosotomy, Joint Replacement, Kidney Transplant, Laminectomy, Liver Transplant, Mastectomy, Nephrectomy, Oopherectomy, Orchiectomy, Permanent Pacemaker, Prostatectomy, Splenectomy, Stent, Thoracotomy, TURP, Tonsillectomy, Tubal Ligation, Upper Endoscopy, Valve Replacement, Vasectomy, Vein Stripping/Ligation Hx Myomectomy: No Hx Transabdominal Cerclage: No - Smoking History Smoking history: Never smoked Have you smoked in the past 12 months: No - Alcohol/Substance Use Hx Alcohol Use: No History of Substance Use: reports: None Home Medications - Allergies Allergies/Adverse Reactions: Allergies Allergy/AdvReac Type Severity Reaction Status Date / Time No Known Allergies Allergy Verified 06/08/20 19:08 - Home Medications Home Medications: Ambulatory Orders Pnv No.95/Ferrous Fum/Folic AC [ Vitamin Tablet] 1 each PO DAILY 05/16/20 Aspirin 81 mg PO DAILY 06/08/20 Folic Acid 1 mg PO DAILY 06/08/20 Progesterone, Micronized [Endometrin] 100 mg VG DAILY 06/08/20 Review of Systems - Review of Systems Constitutional: reports: No Symptoms Eyes: reports: No Symptoms HENT: reports: No Symptoms Neck: reports: No Symptoms Cardiovascular: reports: No Symptoms Respiratory: reports: No Symptoms Gastrointestinal: reports: No Symptoms Genitourinary: reports: No Symptoms Breasts: reports: No Symptoms Reported Musculoskeletal: reports: No Symptoms Integumentary: reports: No Symptoms Neurological: reports: No Symptoms Endocrine: reports: No Symptoms Hematology/Lymphatic: reports: No Symptoms Psychiatric: reports: No Symptoms Physical Exam - Maternity Vital Signs: Vital Signs Temperature 98.5 F 07/23/20 23:10 Pulse Rate 88 07/23/20 23:10 Respiratory Rate 18 07/23/20 23:10 Blood Pressure 112/69 07/23/20 23:10 O2 Sat by Pulse Oximetry (%) Constitutional: Yes: Well Nourished, No Distress, Calm Eyes: Yes: WNL, Conjunctiva Clear, EOM Intact HENT: Yes: WNL, Atraumatic, Normocephalic Neck: Yes: WNL, Supple, Trachea Midline Cardiovascular: Yes: WNL, Regular Rate and Rhythm Breast(s): Yes: WNL - Abdominal Exam/OB Number of Fetuses: Multiple Presentation: Breech Contractions: Yes Regularity: Regular Intensity: Mild/Mod Monitor Mode: External Category: I Accelerations: Uniform - Vaginal Exam/OB Vaginal Bleeding: No Amniotic Membrane Status: Intact Station: -2 - Physical Exam Musculoskeletal: Yes: WNL Problem List - Problems (1) Active labor Code(s): [id number] - (2) Antepartum twin Code(s): O30.009 - TWIN , UNSP NUM PLCNTA & AMNIO SACS, UNSP TRIMESTER Qualifiers: Assessment/Plan Scheduled for c/s at 37 wks. tomorrow. In labor. For c/section. All fully discussed. Aware of all risks, poss. complications. Consent signed.
[2020-07-24] MEDS ORDERED: DEXAMETHASONE SOD PHOSPHATE 4 MG/1 ML VIAL ONE (00:55)
[2020-07-24] MEDS ORDERED: KETOROLAC TROMETHAMINE 30 MG/1 ML VIAL ONE (00:55)
[2020-07-24] MEDS ORDERED: OXYTOCIN 10 UNITS/ML VIAL ONE (01:05)
[2020-07-24] MEDS ORDERED: IBUPROFEN 800 MG/8 ML IJ IVPB PRN (01:49)
[2020-07-24] MEDS ORDERED: ACETAMINOPHEN 1000 MG/100 ML VIAL (NON FORMULARY) IVPB PRN (01:49)
[2020-07-24] MEDS ORDERED: oxyCODONE HCL 5 MG TABLET PO PRN (01:49)
[2020-07-24] MEDS ORDERED: ONDANSETRON 4 MG/2 ML VIAL IVPB PRN (01:49)
[2020-07-24] MEDS: METHYLERGONOVINE MALEATE 0.2 MG TABLET (FP) PO SCH ×6 (01:50→22:30)
--- NOTE | 2020-07-24 01:56 | OP ---
Operative Note - Note: Operative Date: 07/24/20 Pre-Operative Diagnosis: twins, br/br in labor. 37 wks. Operation: Low segment transverse c/section. Post-Operative Diagnosis: Same as Pre-op Surgeon: Sebas Carias Pharmacology Associate: Royal Sosa Anesthesiologist/SWITCHING CLERK: Mervin Horne Anesthesia: Spinal Estimated Blood Loss (mls): 700 Operative Report Dictated: Yes
[2020-07-24] MEDS: OXYTOCIN 20 UNITS in 0.9% NS 20 UNIT/1,000 ML INFUS.BAG IV SCH (02:30)
[2020-07-24] MEDS: CEFAZOLIN 2 GM in DEXTROSE 5%-WATER - 50 ML IVPB SCH ×2 (05:15→09:39)
[2020-07-24] MEDS: ACETAMINOPHEN 325 MG TABLET (FP) PO PRN ×2 (13:17→17:56)
[2020-07-24] MEDS: IBUPROFEN 600 MG TABLET (FP) PO PRN ×3 (13:18→22:31)
--- NOTE | 2020-07-24 14:47 | OP ---
DATE OF OPERATION: DATE OF DICTATION: 07/24/2020 PREOPERATIVE DIAGNOSES: 1. Intrauterine twin , breech and breech, 37 weeks. 2. Active labor. POSTOPERATIVE DIAGNOSES: 1. Intrauterine twin , breech and breech, 37 weeks. 2. Active labor. OPERATION: Primary low segment transverse section. SURGEON: Sheila Esparza MD INTEGRITY SPECIALIST: Royal Sosa MD ANESTHESIOLOGIST: QUINN Torres ANESTHESIA: Spinal. HOSIERY KNITTER: Brigido Ward DO PROCEDURE AND FINDINGS: Under excellent spinal block, following routine prep and drape, abdomen was entered through the Pfannenstiel incision, which was extended transversely through the subcutaneous tissue. Fascia was opened transversely and dissected off the rectus muscles. Muscles were divided in the midline, and peritoneum was entered sharply in the upper part. Peritoneal incision was extended vertically. Very large term uterus with very tense external surface was noted. Tubes and ovaries were within normal limits. Bladder flap was incised and peeled off the lower uterine segment. Hysterotomy was entered transversely, and clear amniotic fluid was noted. Twin A was delivered by breech extraction with Pinard maneuver used for the extremities and Gpvlmhscw-Rvgyrgl-Awsy maneuver for the baby's head. It was a girl. She cried and breathed spontaneously. Cord was divided with short delay, and baby was handed to the reproductive endocrinologist. Uterus was examined. Second twin was noted at that stage to be transverse. Head was guided into the hysterectomy, and twin B was delivered without difficulties. It was a boy, who also cried and breathed spontaneously. Cord was divided with delay, and second baby was also handed to the reproductive endocrinologist. Both twin A and twin B got Apgars of 9 and 9. The cord samples were obtained. Placenta was removed, and uterine cavity was cleaned. Uterine cavity was cleaned, os was dilated, and hysterotomy was closed with continuous running interlocking Biosyn 0 suture. Two bleeding points in the left area were secured with [id number] Biosyn 0 sutures. Hemostasis at that point was excellent. Uterus was then placed in the abdomen, and pelvis was filled with lavage. Hemostasis was again attended to, and no bleedings were noted. Excess fluid was suctioned. Sponge, needle, and instrument count was correct. Abdomen was closed in layers. Peritoneum was closed with continuous running Biosyn 2-0 suture, fascia with continuous running Vicryl 1 suture, subcutaneous tissue was closed with interrupted Biosyn 2-0 suture, and skin was approximated with continuous running subcuticular Biosyn 4-0 suture. Steri-Strips were applied on the uterus. Thick sterile dressing was then applied on the incision and held in place with a binder without tape. Total blood loss was 700 mL. Urine was clear in the Jenkins catheter bag, and it was ample. Patient tolerated the surgery very well, and there were no anesthesia or surgical complications. She was transferred to recovery room comfortable and stable. SHEILA ESPARZA MD [id number]
[2020-07-24] MEDS ORDERED: ELECTROLYTE-148 SOLN 1,000 ML IV SCH (15:00)
[2020-07-24] MEDS: SIMETHICONE 80 MG TAB.CHEW (FP) PO PRN ×2 (17:55→22:31)
[2020-07-24] MEDS: SENNOSIDES/DOCUSATE COMBO (SENNA PLUS) TABLET (UD) PO PRN (22:32)
[2020-07-25] MEDS ORDERED: BISACODYL 10 MG SUPP.RECT RC PRN (01:49)
[2020-07-25] MEDS: ACETAMINOPHEN 325 MG TABLET (FP) PO PRN ×3 (08:44→21:19)
[2020-07-25] MEDS: IBUPROFEN 600 MG TABLET (FP) PO PRN ×4 (08:45→21:19)
[2020-07-25] MEDS: SIMETHICONE 80 MG TAB.CHEW (FP) PO PRN ×3 (08:46→21:18)
[2020-07-25 08:47] LABS: BASO % 0.4 % (0-2.0); EOS % 1.5 % (0-4.5); HEMATOCRIT 29.9 % (32.4-45.2); HEMOGLOBIN 10.4 GM/dL (10.7-15.3); LYMPH % 17.4 % (8-40); MCH 30.1 pg (25.7-33.7); MCHC 34.9 g/dl (32.0-36.0); MEAN CELL VOLUME 86.2 fl (80-96); MEAN PLT VOLUME 8.7 fl (7.5-11.1); MONO % 5.8 % (3.8-10.2); NEUT % 74.9 % (42.8-82.8); PLATELET COUNT 206 K/MM3 (134-434); RBC 3.46 M/mm3 (3.60-5.2); RDW 13.8 % (11.6-15.6); WHITE BLOOD COUNT 10.5 K/mm3 (4.0-10.0)
--- NOTE | 2020-07-25 14:45 | PN ---
Progress Note, Physician Chief Complaint: s/p c section for twin delivery post op day one History of Present Illness: under spinal anesthesia with duramorph intrathecally for post op pain control - Current Medication List Current Medications: Active Medications Acetaminophen (Tylenol -) 650 mg PO Q6H PRN PRN Reason: PAIN LEVEL 1-5 Last Admin: 07/25/20 08:44 Dose: 650 mg Documented by: Bisacodyl (Dulcolax Suppository -) 10 mg RC PRN PRN PRN Reason: CONSTIPATION Diphenhydramine HCl (Benadryl Injection -) 25 mg IVPUSH Q4H PRN PRN Reason: Pruritis Last Admin: 07/24/20 16:12 Dose: 25 mg Documented by: Oxytocin/Sodium Chloride (Normal Saline+20 Units Oxytocin -) 20 unit in 1,000 mls @ 125 mls/hr IV [facility] Last Admin: 07/24/20 02:30 Dose: 125 mls/hr Documented by: Parenteral Electrolytes (Plasma-Lyte 148 -) 1,000 mls @ 500 mls/hr IV [facility] Last Admin: 07/23/20 23:50 Dose: 500 mls/hr Documented by: Ibuprofen (Motrin -) 600 mg PO Q4H PRN PRN Reason: PAIN LEVEL 1 - 3 Last Admin: 07/25/20 12:44 Dose: 600 mg Documented by: Ondansetron HCl (Zofran Injection) 4 mg IVPUSH Q4H PRN PRN Reason: NAUSEA Ondansetron HCl (Zofran Injection) 4 mg IVPB Q4H PRN PRN Reason: NAUSEA AND/OR VOMITING Oxycodone HCl (Roxicodone -) 5 mg PO Q6H PRN PRN Reason: Pain Level 4 - 8 Senna/Docusate Sodium (Pericolace -) 2 tablet PO HS PRN PRN Reason: CONSTIPATION Last Admin: 07/24/20 22:32 Dose: 2 tablet Documented by: Simethicone (Mylicon -) 80 mg PO Q4H PRN PRN Reason: GAS Last Admin: 07/25/20 08:46 Dose: 80 mg Documented by: - Objective Vital Signs: Vital Signs Temperature 98.3 F 07/25/20 10:00 Pulse Rate 80 07/25/20 10:00 Respiratory Rate 16 07/25/20 10:00 Blood Pressure 118/64 07/25/20 10:00 O2 Sat by Pulse Oximetry (%) 96 07/24/20 02:45 Constitutional: Yes: Well Nourished Cardiovascular: Yes: WNL Respiratory: Yes: WNL ...Rectal Exam: Yes: WNL Labs: CBC, BMP 07/25/20 07:28 Assessment/Plan pain controlled, no nausea, vomiting or other adverse anesthetic complications. dept of anesthesiology will sign off at this time
[2020-07-25] MEDS: ELECTROLYTE-148 SOLN 1,000 ML IV SCH (20:16)
[2020-07-25] MEDS: OXYTOCIN 20 UNITS in 0.9% NS 20 UNIT/1,000 ML INFUS.BAG IV SCH (20:17)
--- NOTE | 2020-07-25 20:52 | PN ---
Post Progress Note Post Day: 1 Type of Delivery: Primary C/S Vital Signs: Vital Signs Temperature 98.3 F 07/25/20 10:00 Pulse Rate 80 07/25/20 10:00 Respiratory Rate 16 07/25/20 10:00 Blood Pressure 118/64 07/25/20 10:00 O2 Sat by Pulse Oximetry (%) 96 07/24/20 02:45 Breast Exam: Yes: Soft Uterus: Yes: Fundus Firm, Fundus below umbilicus Incision: Yes: Dressing dry and intact, Sutures intact Abdomen/GI: Yes: Abdomen soft, Passing flatus, Tolerating PO Lochia: Yes: Serosa Lochia, amount: Small Extremities: Yes: Calves non-tender Activity: Ambulating (doing well ) - Labs Labs: CBC WBC 10.5 K/mm3 (4.0-10.0) H 07/25/20 07:28 RBC 3.46 M/mm3 (3.60-5.2) L 07/25/20 07:28 Hgb 10.4 GM/dL (10.7-15.3) L 07/25/20 07:28 Hct 29.9 % (32.4-45.2) L 07/25/20 07:28 MCV 86.2 fl (80-96) 07/25/20 07:28 MCH 30.1 pg (25.7-33.7) 07/25/20 07:28 MCHC 34.9 g/dl (32.0-36.0) 07/25/20 07:28 RDW 13.8 % (11.6-15.6) 07/25/20 07:28 Plt Count 206 K/MM3 (134-434) 07/25/20 07:28 MPV 8.7 fl (7.5-11.1) 07/25/20 07:28 Absolute Neuts (auto) 7.9 K/mm3 (1.5-8.0) 07/25/20 07:28 Neutrophils % 74.9 % (42.8-82.8) 07/25/20 07:28 Lymphocytes % 17.4 % (8-40) 07/25/20 07:28 Monocytes % 5.8 % (3.8-10.2) 07/25/20 07:28 Eosinophils % 1.5 % (0-4.5) 07/25/20 07:28 Basophils % 0.4 % (0-2.0) 07/25/20 07:28 Nucleated RBC % 0 % (0-0) 07/25/20 07:28
[2020-07-25] MEDS: SENNOSIDES/DOCUSATE COMBO (SENNA PLUS) TABLET (UD) PO PRN (21:20)
[2020-07-26] MEDS: ACETAMINOPHEN 325 MG TABLET (FP) PO PRN ×3 (06:16→21:11)
[2020-07-26] MEDS: IBUPROFEN 600 MG TABLET (FP) PO PRN ×3 (06:17→21:11)
[2020-07-26] MEDS: SIMETHICONE 80 MG TAB.CHEW (FP) PO PRN ×3 (06:17→21:11)
--- NOTE | 2020-07-26 12:00 | PN ---
Progress Note (short form) - Note Progress Note: Doing very well. Pain under control. Incision clean and dry. No CVA, extrem. T. I/P: Well. Discharge tomorow. Problem List - Problems (1) Active labor Code(s): OWX4597 - (2) Antepartum twin Code(s): O30.009 - TWIN , UNSP NUM PLCNTA & AMNIO SACS, UNSP TRIMESTER Qualifiers:
[2020-07-26] MEDS: SENNOSIDES/DOCUSATE COMBO (SENNA PLUS) TABLET (UD) PO PRN (21:11)
[2020-07-27] MEDS: ACETAMINOPHEN 325 MG TABLET (FP) PO PRN (08:01)
[2020-07-27] MEDS: SIMETHICONE 80 MG TAB.CHEW (FP) PO PRN (08:01)
[2020-07-27] MEDS: IBUPROFEN 600 MG TABLET (FP) PO PRN (08:01)
--- NOTE | 2020-07-27 09:11 | PN ---
Progress Note (short form) - Note Progress Note: Doing very well. Babies are going home. Instructed. Discharge. Problem List - Problems (1) Active labor Code(s): GLQ2142 - (2) Antepartum twin Code(s): O30.009 - TWIN , UNSP NUM PLCNTA & AMNIO SACS, UNSP TRIMESTER Qualifiers:
--- NOTE | 2020-07-27 09:18 | DS ---
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: Vital Signs Temperature 98.6 F 07/26/20 21:41 Pulse Rate 84 07/26/20 21:41 Respiratory Rate 18 07/26/20 21:41 Blood Pressure 123/82 07/26/20 21:41 O2 Sat by Pulse Oximetry (%) 96 07/24/20 02:45 Constitutional: Yes: Well Nourished, No Distress, Calm Eyes: Yes: WNL, Conjunctiva Clear, EOM Intact HENT: Yes: WNL, Atraumatic, Normocephalic Neck: Yes: WNL, Supple, Trachea Midline Cardiovascular: Yes: WNL, Regular Rate and Rhythm Respiratory: Yes: WNL, Regular, CTA Bilaterally Gastrointestinal: Yes: WNL ...Rectal Exam: Yes: WNL Renal/: Yes: WNL Internal Exam Deferred: Yes ....Post : Yes: Uterus firm Breast(s): Yes: WNL Musculoskeletal: Yes: WNL Extremities: Yes: WNL Integumentary: Yes: WNL Wound/Incision: Yes: Clean/Dry Neurological: Yes: WNL, Alert, Oriented ...Motor Strength: WNL Psychiatric: Yes: WNL, Alert, Oriented Labs: CBC, BMP 07/25/20 07:28 Delivery - Delivery Section: Primary, Low Flap Transverse Type of Anesthesia: Spinal EBL (cc): 700 Delivery, Single - [place] Feeding Plan Initial Plan: Exclusive throughout hospitalization Delivery, Multiple Births - Stages of Labor First Stage Date: 07/23/20 Time: 22:00 Delivery Baby "A" Date: 07/24/20 Time: 01:14 Placenta/Membranes "A" Date: 07/24/20 Time: 01:18 Delivery Baby "B" Date: 07/24/20 Time: 01:16 Placenta/Membranes "B" Date: 07/24/20 Time: 01:18 - Condition of Multiple Births [place] 1 (A) 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 Present: Yes Capper Machine Operator: Bette Ward Infant Gender: Female Weight: 4 lb 14 oz Total Hours ROM (HRS/MINS): 2m [place] 2 (B) 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 Present: Yes Capper Machine Operator: Bette Ward Gender: Male Weight: 5 lb 5 oz Total Hours ROM (HRS/MINS): 1m - [place] 1 (A) Score: 9 [place] 1 (A) 5 Minutes Score: 9 2 (B) 1 Minute Score: 9 [place] 2 (B) 5 Minutes Score: 9 Discharge Summary Problems reviewed: Yes Reason For Visit: LABOR Current Active Problems Active labor (Acute) Procedures: Principal: c/section Hospital Course: uneventful Condition: Good - Instructions Diet, Activity, Other Instructions: Physical activity Resume your normal everyday activity as tolerated no heavy lifting or exercise until seen by your surgeon. You may walk unlimited carson of and climb stairs. You may resume driving the car when you feel safe and comfortable behind the wheel. No sexual activity as instructed. Wound care If you have a bandage, leave it on, and keep dry for 48-72 hours. After that time discard the outer bandage. If they are tapes on the skin under the out of bandage leave them in place. They will peel off in the next 7 to 10 days. Do Peel them off in 7-10 days. You may shower the day after surgery. If there are tapes present on the skin, you may shower over them. Use binder if it helps. Diet There are no dietary restrictions. Eat healthy, high-fiber foods. Drink 6 to 8 glasses of liquid each day. This will assist in keeping your bowels are regular. Pain management You may take Tylenol or acetaminophen or Ibuprofen (for example, Motrin, Advil etc.) from my pain prescription medication is ordered should be taken as prescribed for moderate to severe pain. Oxycodone as needed; as little as possible. Call MD for any of the following: Severe pain not relieved by medication Fever of 101 or higher Excessive bleeding or drainage on dressing Inability to urinate [phone] Disposition: HOME - Home Medications Comprehensive Discharge Medication List: Ambulatory Orders Pnv No.95/Ferrous Fum/Folic AC [ Vitamin Tablet] 1 each PO DAILY 05/16/20 Aspirin 81 mg PO DAILY 06/08/20 Folic Acid 1 mg PO DAILY 06/08/20 Progesterone, Micronized [Endometrin] 100 mg VG DAILY 06/08/20 Prescription Drug Monitoring Program (I-STOP) results: I-STOP reviewed and no issues identified
[2020-07-27 09:31] VITALS: BP 121/77; PULSE 93; TEMP 98.2
--- NOTE | 2020-07-28 17:20 | PATH ---
Surgical Pathology Report Patient Name: JAYDA LAU [place]. Rec. #: [id number] /Age/Gender: 1995 (Age: 24) / F Account: [id number] Location: [facility] OBS/PHYSICAL THERAPIST Taken: 07/24/2020 Received: 07/24/2020 Reported: 07/28/2020 Physicians: Sebas Carias MD Specimen(s) Received PLACENTA,TWIN Clinical History with twin 37.5 gestation weak Final Diagnosis PLACENTA: DIAMNIOTIC, DICHORIONIC, FUSED, TWIN, THIRD TRIMESTER PLACENTA. PLACENTA "A" SHOWS A THREE-VESSELS CORD AND MEMBRANES WITH NO DIAGNOSTIC ABNORMALITIES. PLACENTA "B" SHOWS A THREE-VESSELS CORD AND MEMBRANES WITH NO DIAGNOSTIC ABNORMALITIES. Electronically Signed Mildred Hannah M.D. Gross Description Received fresh labeled "placenta," is a 694 g twin placenta comprised of a single disc by dividing membranes. The placenta measures 21 x 20 x 2.3 cm. The dividing membranes are lozada and opaque. The membranes of arbitrarily designated placenta "A" are lozada, translucent with focal opacities and insert marginally. The umbilical cord of placenta "A" measures 25 cm in length and averages 1.2cm in diameter. The cord inserts eccentrically, 2 cm to the nearest margin. No true knots or strictures are identified. The cut surface of the umbilical cord reveals 3 vessels. The membranes of arbitrarily designated placenta "B" are lozada, translucent with focal opacities and insert marginally. The umbilical cord of placenta "B" measures 23 cm in length and averages 1.2 cm in diameter. The cord inserts eccentrically, 6 cm to the nearest margin. No true knots or strictures are identified. Cut surface of the umbilical cord reveals 3 vessels. The surface is kearney blue with minimal fibrin deposition and appropriate caliber vessels. The maternal surface is red-brown with focal defects. Sectioning reveals red-brown, spongy parenchyma. No lesions are identified. Cemetery Manager sections are submitted in 7 cassettes as follows: 1-dividing membranes 2-placenta "A" membrane rolls umbilical cord; 3-4-full thickness sections of placenta "A";9 the diagnosis 5-placenta "B" membrane rolls umbilical cord; 6-7-full thickness sections of placenta "B" KWS/07/24/2020 [email or web address]/24/2020
== END 2020-07-27 17:30 | disposition home or self-care (01) | DRG 540 ==
LOC: JDEL 22:55 → JLDR 23:30 → J3W 07-24 03:50
PROVIDERS: ADMIT Specialist; ATTEND Specialist
PROC: 10D00Z1 Extraction of Products of Conception, Low, Open Approach (ICD-10-PCS; principal; 2020-07-24)
DX: O82 Encounter for cesarean delivery without indication (principal); O30.043 Twin pregnancy, dichorionic/diamniotic, third trimester; Z37.2 Twins, both liveborn; Z3A.37 37 weeks gestation of pregnancy; O32.1XX1 Maternal care for breech presentation, fetus 1; O32.1XX2 Maternal care for breech presentation, fetus 2; Z86.69 Personal history of other diseases of the nervous system and sense organs
CPT/HCPCS: 36415; 85025; 88307-TC

== ENCOUNTER 2023-10-16 10:02 | Emergency (ER) | payer OTHER ==
[2023-10-16 10:18] VITALS: BP 109/61; PULSE 87; RESP 18; TEMP 98.6; BMI 25.6
[2023-10-16] MEDS ORDERED: SODIUM CHLORIDE 0.9% 500 ML INFUS.BAG IV ONE (11:17)
[2023-10-16] MEDS ORDERED: ONDANSETRON 4 MG/2 ML VIAL IVPUSH ONE (11:17)
[2023-10-16] MEDS ORDERED: ONDANSETRON 4 MG/2 ML VIAL ONE (11:22)
[2023-10-16 12:30] LABS: BASO % 0.3 % (0-2.0); EOS % 1.6 % (0-4.5); HEMATOCRIT 37.3 % (32.4-45.2); HEMOGLOBIN 12.4 GM/dL (10.7-15.3); MCH 29.4 pg (25.7-33.7); MCHC 33.2 g/dl (32.0-36.0); MEAN CELL VOLUME 88.6 fl (80-96); MEAN PLT VOLUME 7.8 fl (7.5-11.1); MONO % 10.4 % (3.8-10.2); NEUT % 66.7 % (42.8-82.8); PLATELET COUNT 244 10^3/uL (134-434); RBC 4.21 M/mm3 (3.60-5.2); RDW 13.6 % (11.6-15.6); WHITE BLOOD COUNT 5.3 K/mm3 (4.0-10.0)
[2023-10-16 12:34] LABS: EPI CELLS >36 /uL (0-25.1); HYALINE CASTS 3 /uL (0-3.1); PH,URINE 6.5 (5.0-8.0); URINE APPEARANCE CLOUDY; URINE BACTERIA 2312 /uL (0-1359); URINE BILIRUBIN NEGATIVE (NEGATIVE); URINE COLOR DK YELLOW; URINE GLUCOSE (UA) NEGATIVE (NEGATIVE); URINE KETONE TRACE (NEGATIVE); URINE LEUK ESTERASE TRACE (NEGATIVE); URINE NITRITE NEGATIVE (NEGATIVE); URINE PROTEIN TRACE (NEGATIVE); URINE RBC 16 /uL (0-23.9); URINE WBC 20 /uL (0-25.8)
[2023-10-16 12:57] LABS: POTASSIUM 4.2 mmol/L (3.5-5.1)
[2023-10-16 12:59] LABS: ALBUMIN 3.4 g/dl (3.4-5.0); CALCIUM 8.8 mg/dL (8.5-10.1)
[2023-10-16 13:00] LABS: BLOOD UREA NITROGEN 8.5 mg/dL (7-18)
[2023-10-16] MEDS ORDERED: NITROFURANTOIN MONOHYD/M-CRYST 100 MG CAPSULE PO SCH (13:00)
[2023-10-16 13:02] LABS: CREATININE 0.5 mg/dL (0.55-1.3)
[2023-10-16 13:04] LABS: BILIRUBIN,TOTAL 0.3 mg/dL (0.2-1); TOT PROT 6.9 g/dl (6.4-8.2)
== END 2023-10-16 14:15 | disposition home or self-care (01) ==
LOC: JERFT 10:02
PROC: 3E033GC Introduction of Other Therapeutic Substance into Peripheral Vein, Percutaneous Approach (ICD-10-PCS; principal; 2023-10-16)
DX: O21.9 Vomiting of pregnancy, unspecified (principal); O23.91 Unspecified genitourinary tract infection in pregnancy, first trimester; R82.71 Bacteriuria; Z3A.00 Weeks of gestation of pregnancy not specified
CPT/HCPCS: 36415; 80053; 81003; 85025; 87086; 99284-25